=== PATIENT | female | born 1950 | race Caucasian/White ===

== ENCOUNTER 2021-07-22 00:08 | Emergency (ER) | payer SELFPAY ==
[2021-07-22] MEDS ORDERED: MORPHINE 4 MG/ML SYR ONE (02:56)
[2021-07-22] MEDS ORDERED: ONDANSETRON 4 MG/2 ML VIAL ONE (02:57)
[2021-07-22 02:58] LABS: Absolute Lymphocytes (CBC) 2.2 K/uL (0.7-4.9); Hematocrit 39.4 % (36.0-45.0); Lymphocytes % 22.4 % (15.3-44.8); MPV 9.4 fL (7.6-11.3); RBC Red Blood Cell Count 3.95 M/uL (3.86-4.86)
[2021-07-22 03:03] LABS: Protime INR 0.96
[2021-07-22 03:13] LABS: ALT/SGPT 26 U/L (12-78); AST/SGOT 18 U/L (15-37); Albumin 3.4 g/dL (3.4-5.0); Alkaline Phosphatase 142 U/L (45-117); BUN Blood Urea Nitrogen 20 mg/dL (7-18); Bicarbonate 27 mmol/L (21-32); Bilirubin Total 0.3 mg/dL (0.2-1.0); Glucose Level 96 mg/dL (74-106); Protein, Total 7.1 g/dL (6.4-8.2); Sodium Level 139 mmol/L (136-145)
[2021-07-22 03:14] LABS: Bilirubin Direct < 0.1 mg/dL (0-0.2)
[2021-07-22] MEDS ORDERED: CLINDAMYCIN 600MG/D5W 600 MG/50 ML BAG IV ONE (04:37)
[2021-07-22 04:41] LABS: Urine Blood Negative (Negative); Urine Glucose Negative (Negative); Urine Protein Negative (Negative); Urine Specific Gravity 1.025 (1.005-1.030)
--- NOTE | 2021-07-22 05:15 | ER ---
Nurse's Notes [facility] Name: Mila Rose Age: 70 yrs Sex: Female : 1950 Arrival Date: 07/22/2021 Time: 00:13 Bed 25 Private MD: Diagnosis: Cellulitis, Right Foot Presentation: 07/22 00:28 Chief complaint: Patient states: C/o right foot pain since yesterday, pain is 10/10, ll3 foot noted to be swollen and red. Coronavirus screen: Vaccine status: Patient reports receiving the 2nd dose of the covid vaccine. At this time, the client does not indicate any symptoms associated with coronavirus-19. Ebola Screen: No symptoms or risks identified at this time. Initial Sepsis Screen: Does the patient meet any 2 criteria? No. Patient's initial sepsis screen is negative. Does the patient have a suspected source of infection? No. Patient's initial sepsis screen is negative. Risk Assessment: Do you want to hurt yourself or someone else? Patient reports no desire to harm self or others. Onset of symptoms was July 21, 2021. 00:28 Method Of Arrival: Wheelchair ll3 00:28 Acuity: KISHAN 3 ll3 Triage Assessment: 00:32 General: Appears uncomfortable, Behavior is calm, cooperative. Pain: Complains of pain ll3 in right foot Pain radiates to right first toe and right second toe Pain currently is 10 out of 10 on a pain scale. Quality of pain is described as sharp, shooting, stabbing, Pain began 1 day ago. Is continuous, Noted to be grimacing, guarding, moaning. Cardiovascular: Patient's skin is warm and dry. Derm: Skin is red, Skin temperature is warm Swelling to right foot. Historical: - Allergies: 00:32 No Known Allergies; ll3 - Home Meds: 00:32 levothyroxine 75 mcg cap once daily [Active]; ll3 - PMHx: 00:32 Hypothyroidism; ll3 - Immunization history:: Client reports receiving the 2nd dose of the Covid vaccine. - Social history:: Smoking status: Patient reports the use of cigarette tobacco products, smokes one-half pack cigarettes per day. Screenin:22 Abuse screen: Denies threats or abuse. Nutritional screening: No deficits noted. ll3 Tuberculosis screening: No symptoms or risk factors identified. 05:21 Fall Risk No fall in past 12 months (0 pts). No secondary diagnosis (0 pts). IV access ll3 (20 points). Ambulatory Aid- None/Bed Rest/Nurse Assist (0 pts). Gait- Normal/Bed Rest/Wheelchair (0 pts) Mental Status- Oriented to own ability (0 pts). Total Mansfield Fall Scale indicates No Risk (0-24 pts). Assessment: 01:22 General: Appears uncomfortable, Behavior is calm, cooperative. Pain: Complains of pain ll3 in right foot Pain currently is 10 out of 10 on a pain scale. Quality of pain is described as sharp, shooting. Neuro: Level of Consciousness is awake, alert, obeys commands, Oriented to person, place, time, situation. Respiratory: Respiratory effort is even, unlabored, Respiratory pattern is regular, symmetrical. Derm: Skin is red, Skin temperature is warm swelling to right foot Reports pain. Musculoskeletal: Circulation, motion, and sensation intact. 04:43 Reassessment: Right foot swelling decreased, ERP notified. ll3 05:20 Reassessment: Patient and/or family updated on plan of care and expected duration. Pain ll3 level reassessed. Patient is alert, oriented x 3, equal unlabored respirations, skin warm/dry/pink. Patient states symptoms have improved. Vital Signs: 00:28 BP 170 / 98; Pulse 99; Resp 16; Temp 98.3(TE); Pulse Ox 100% on R/A; Weight 67.13 kg ll3 (R); Height 5 ft. 1 in. (154.94 cm) (R); Pain 10/10; 01:25 BP 179 / 103; Pulse 96; Resp 18; Pulse Ox 98% on R/A; ll3 04:00 BP 150 / 80; Pulse 88; Resp 18; Pulse Ox 95% ; mw1 05:20 BP 135 / 76; Pulse 79; Resp 17; Pulse Ox 98% on R/A; ll3 00:28 Body Mass Index 27.96 (67.13 kg, 154.94 cm) ll3 ED Course: 00:13 Patient arrived in ED. kz 00:32 Triage completed. ll3 00:32 Arm band placed on right wrist. ll3 01:22 Loubet, Lynsea, RN is Primary Nurse. ll3 01:22 Patient has correct armband on for positive identification. Placed in gown. Bed in low ll3 position. Call light in reach. Side rails up X 1. 01:41 Ronny Green MD is Attending Physician. 7 02:47 Inserted saline lock: 20 gauge in left antecubital area, using aseptic technique. mw1 02:50 Initial lab(s) drawn, by ED staff, sent to lab. First set of blood cultures drawn by ED ll3 staff, Second set of blood cultures drawn by ED staff, X-ray(s) taken. 03:11 Foot Right 3 View XRAY In Process Unspecified. EDMS 05:21 No provider procedures requiring assistance completed. ll3 05:37 US Extremity Venous Unilateral Ltd In Process Unspecified. EDMS 05:48 IV discontinued, intact, bleeding controlled, No redness/swelling at site. Pressure ll3 dressing applied. Administered Medications: 03:00 Drug: Zofran (Ondansetron) 4 mg Route: IVP; Site: left antecubital; ll3 03:57 Follow up: Response: No adverse reaction ll3 03:01 Drug: morphine 4 mg Route: IVP; Site: left antecubital; ll3 03:57 Follow up: Response: No adverse reaction; Marked relief of symptoms ll3 04:41 Drug: Clindamycin 600 mg Route: IVPB; Infused Over: 30 mins; Site: left antecubital; ll3 05:09 Follow up: Response: No adverse reaction; IV Status: Completed infusion; IV Intake: [id number] Intake: 05:09 IV: 50ml; Total: 50ml. ll3 Outcome: 05:15 Discharge ordered by . 7 05:48 Discharged to home ambulatory, with family. ll3 05:48 Condition: stable 05:48 Discharge instructions given to patient, family, Instructed on discharge instructions, follow up and referral plans. medication usage, Demonstrated understanding of instructions, follow-up care, medications, Prescriptions given X 2. 05:49 Patient left the ED. ll3 Signatures: Dispatcher [employer] EDRI Otilio Armenta mw1 Ronny Green MD MD Branden Gillis RN RN ll3 Bobbi Arana
--- NOTE | 2021-07-22 05:16 | EDPHYS ---
Physician Documentation [facility] Name: Mila Rose Age: 70 yrs Sex: Female : 1950 Arrival Date: 07/22/2021 Time: 00:13 Bed 25 Private MD: ALLA Physician Ronny Green HPI: 07/22 02:55 This 70 yrs old Female presents to ER via Wheelchair with complaints of Right foot mh7 swelling. 02:55 The patient presents with pain, that is acute, swelling. The complaints affect the mh7 right foot. Context: The problem was sustained at an unknown location, resulted from an unknown cause, Mechanism of Injury: Unknown the patient can fully bear weight, the patient is able to ambulate, with mild difficulty. Onset: The symptoms/episode began/occurred yesterday. Modifying factors: The symptoms are alleviated by nothing, the symptoms are aggravated by weight bearing, movement, touching area. Associated signs and symptoms: Pertinent negatives: calf tenderness, fever, nausea, numbness, rash, tingling, vomiting, weakness. Severity of symptoms: At their worst the symptoms were moderate, last night, in the emergency department the symptoms are unchanged. Historical: - Allergies: 00:32 No Known Allergies; ll3 - Home Meds: 00:32 levothyroxine 75 mcg cap once daily [Active]; ll3 - PMHx: 00:32 Hypothyroidism; ll3 - Immunization history:: Client reports receiving the 2nd dose of the Covid vaccine. - Social history:: Smoking status: Patient reports the use of cigarette tobacco products, smokes one-half pack cigarettes per day. ROS: 02:55 Constitutional: Negative for fever, chills, and weight loss, Eyes: Negative for injury, mh7 pain, redness, and discharge, ENT: Negative for injury, pain, and discharge, Neck: Negative for injury, pain, and swelling, Cardiovascular: Negative for chest pain, palpitations, and edema, Respiratory: Negative for shortness of breath, cough, wheezing, and pleuritic chest pain, Abdomen/GI: Negative for abdominal pain, nausea, vomiting, diarrhea, and constipation, Back: Negative for injury and pain, : Negative for injury, bleeding, discharge, and swelling, Neuro: Negative for headache, weakness, numbness, tingling, and seizure, Psych: Negative for depression, anxiety, suicide ideation, homicidal ideation, and hallucinations, Allergy/Immunology: Negative for hives, rash, and allergies, Endocrine: Negative for neck swelling, polydipsia, polyuria, polyphagia, and marked weight changes, Hematologic/Lymphatic: Negative for swollen nodes, abnormal bleeding, and unusual bruising. Exam: 02:55 Head/Face: Normocephalic, atraumatic. Eyes: Pupils equal round and reactive to light, mh7 extra-ocular motions intact. Lids and lashes normal. Conjunctiva and sclera are non-icteric and not injected. Cornea within normal limits. Periorbital areas with no swelling, redness, or edema. Neck: Trachea midline, no thyromegaly or masses palpated, and no cervical lymphadenopathy. Supple, full range of motion without nuchal rigidity, or vertebral point tenderness. No Meningismus. Chest/axilla: Normal chest wall appearance and motion. Nontender with no deformity. No lesions are appreciated. Cardiovascular: Regular rate and rhythm with a normal S1 and S2. No gallops, murmurs, or rubs. Normal PMI, no JVD. No pulse deficits. Respiratory: Lungs have equal breath sounds bilaterally, clear to auscultation and percussion. No rales, rhonchi or wheezes noted. No increased work of breathing, no retractions or nasal flaring. Abdomen/GI: Soft, non-tender, with normal bowel sounds. No distension or tympany. No guarding or rebound. No evidence of tenderness throughout. Back: No spinal tenderness. No costovertebral tenderness. Full range of motion. Neuro: Awake and alert, GCS 15, oriented to person, place, time, and situation. Cranial nerves II-XII grossly intact. Motor strength 5/5 in all extremities. Sensory grossly intact. Cerebellar exam normal. Normal gait. Psych: Awake, alert, with orientation to person, place and time. Behavior, mood, and affect are within normal limits. 02:55 Constitutional: The patient appears in no acute distress, alert, awake, uncomfortable. 02:55 Musculoskeletal/extremity: Extremities: noted in the dorsal right foot: erythema, swelling, tenderness, ROM: intact in all extremities, Circulation is intact in all extremities. Sensation intact. Compartment Syndrome exam of affected extremity: is normal. no numbness, no tingling, no sensation deficit, no palor, no weak pulses, Joints: All joints appear normal with full range of motion. Weight bearing: able to fully bear weight, Tendon exam: specific tendon testing normal through active and passive range of motion Vital Signs: 00:28 BP 170 / 98; Pulse 99; Resp 16; Temp 98.3(TE); Pulse Ox 100% on R/A; Weight 67.13 kg ll3 (R); Height 5 ft. 1 in. (154.94 cm) (R); Pain 10/10; 01:25 BP 179 / 103; Pulse 96; Resp 18; Pulse Ox 98% on R/A; ll3 04:00 BP 150 / 80; Pulse 88; Resp 18; Pulse Ox 95% ; mw1 05:20 BP 135 / 76; Pulse 79; Resp 17; Pulse Ox 98% on R/A; ll3 00:28 Body Mass Index 27.96 (67.13 kg, 154.94 cm) ll3 MDM: 05:13 Differential diagnosis: fracture, sprain, arthritis, gout, cellulitis. Data reviewed: [facility] vital signs, nurses notes, lab test result(s), CBC, electrolytes, urinalysis, radiologic studies, plain films, ultrasound. Data interpreted: Pulse oximetry: on room air is 97 %. Interpretation: normal. Counseling: I had a detailed discussion with the patient and/or guardian regarding: the historical points, exam findings, and any diagnostic results supporting the discharge/admit diagnosis, the presence of at least one elevated blood pressure reading (>120/80) during this emergency department visit, lab results, radiology results, the need for outpatient follow up, to return to the emergency department if symptoms worsen or persist or if there are any questions or concerns that arise at home. Response to treatment: the patient's symptoms have markedly improved after treatment. 05:15 Patient medically screened. [facility] 07/22 02:36 Order name: CBC with Diff; Complete Time: 03:09 [facility] 07/22 02:36 Order name: Basic Metabolic Panel; Complete Time: 03:16 [facility] 07/22 02:36 Order name: Protime (+inr); Complete Time: 03:09 [facility] 07/22 02:36 Order name: Ptt, Activated; Complete Time: 03:09 [facility] 07/22 02:36 Order name: LFT's; Complete Time: 03:16 [facility] 07/22 02:36 Order name: Blood Culture Adult (2) [facility] 07/22 02:36 Order name: Foot Right 3 View XRAY [facility] 07/22 02:36 Order name: Saline Lock; Complete Time: 02:39 [facility] 07/22 04:12 Order name: US Extremity Venous Unilateral Ltd [facility] 07/22 04:41 Order name: Urine Dipstick-Ancillary; Complete Time: 04:51 [facility] 07/22 05:44 Order name: Orthopedic shoe; Complete Time: 05:44 ll3 Administered Medications: 03:00 Drug: Zofran (Ondansetron) 4 mg Route: IVP; Site: left antecubital; ll3 03:57 Follow up: Response: No adverse reaction ll3 03:01 Drug: morphine 4 mg Route: IVP; Site: left antecubital; ll3 03:57 Follow up: Response: No adverse reaction; Marked relief of symptoms 3 04:41 Drug: Clindamycin 600 mg Route: IVPB; Infused Over: 30 mins; Site: left antecubital; ll3 05:09 Follow up: Response: No adverse reaction; IV Status: Completed infusion; IV Intake: [id number] Disposition Summary: 07/22/21 05:15 Discharge Ordered Location: Home [facility] Problem: new [facility] Symptoms: have improved [facility] Condition: Stable [facility] Diagnosis - Cellulitis, Right Foot [facility] Followup: [facility] - With: Private Physician - When: 1 - 2 days - Reason: Worsening of condition, Recheck today's complaints, Continuance of care, Re-evaluation by your physician Discharge Instructions: - Discharge Summary Sheet [facility] - Cellulitis, Adult, [id number] [facility] Forms: - Medication Reconciliation Form [facility] - Thank You Letter [facility] - Antibiotic Education [facility] - Prescription Opioid Use [facility] - School release form cs9 Prescriptions: - Clindamycin HCl 300 mg Oral Capsule - take 1 capsule by ORAL route every 6 hours for 10 days; 40 capsule; Refills: 0, [facility] Product Selection Permitted - Tylenol-Codeine #3 300 mg-30 mg Oral - take 2 tablet by ORAL route every 6 hours As needed; 15 tablet; Refills: 0, [facility] Product Selection Permitted Signatures: Dispatcher [employer] Ronny Braden MD MD [facility] Ladonna Florencesea, RN RN ll3
[2021-07-22 05:58] VITALS: TEMP 98.3
[2021-07-22 06:02] VITALS: BP 135/76; O2SAT 98
--- NOTE | 2021-07-22 12:21 | RAD REPORT ---
EXAM DESCRIPTION: Extremity Venous Uni Ltd US Right Lower Extremity Venous Duplex Doppler CLINICAL HISTORY: Right leg pain. COMPARISON: None. TECHNIQUE: Grayscale, color Doppler, duplex Doppler, spectral Doppler images and analysis with compr ession and augmentation of right lower extremity veins. FINDINGS: Right common femoral, greater saphenous, femoral, deep (profunda) femoral, popliteal, post erior tibial veins unremarkable without evidence of clot. IMPRESSION: No sonographic evidence of right lower extremity DVT. Electronically signed by: Lamine Abarca MD 07/22/2021 6:15 AM CDT Due to temporary technical issues with the PACS/Fluency reporting system, reports are being signed by the in house radiologist without review as a courtesy to ensure prompt reporting. The interpreting r adiologist is fully responsible for the content of the report.
--- NOTE | 2021-07-22 12:24 | RAD REPORT ---
EXAM DESCRIPTION: Foot Right 3 View CLINICAL HISTORY: 70 years Female Pain TECHNIQUE: Three x-ray views of the right foot were performed on 07/22/2021 at 3:04 AM. COMPARISON: None FINDINGS: There is no evidence of fracture or dislocation. There is mild generalized narrowing of th e DIP and PIP joints.. No focal lytic or sclerotic bone lesions are seen. Bone mineralization is decreased. There may be mild soft tissue swelling along the dorsal aspect of the metatarsals. IMPRESSION: 1. No evidence of acute osseous injury. 2. Generalized bone demineralization. 3. Mild narrowing of the DIP and PIP joints. 4. Suspect mild soft tissue swelling along the dorsal aspect of the metatarsals. Electronically signed by: Nicky Chacon DO 07/22/2021 3:50 AM CDT Due to temporary technical issues with the PACS/Fluency reporting system, reports are being signed by the in house radiologist without review as a courtesy to ensure prompt reporting. The interpreting r adiologist is fully responsible for the content of the report.
== END 2021-07-22 05:49 | disposition home or self-care (01) ==
LOC: ER 00:08
DX: L03.115 Cellulitis of right lower limb (principal); E03.9 Hypothyroidism, unspecified; F17.210 Nicotine dependence, cigarettes, uncomplicated
CPT/HCPCS: 36415; 80048; 80076; 81003; 85025; 85610; 85730; 87040; 93971; 96365; 96375; 99284; J2405